=== PATIENT | female | born 1940 | race Caucasian/White ===

== ENCOUNTER 2018-01-19 08:10 | Inpatient (IN) | payer MEDICARE ==
[2018-01-12 12:00] LABS: BASOPHILS # (AUTO) 0.1 X10'3 (0-0.2); BASOPHILS % (AUTO) 0.7 % (0-1); EOSINOPHILS # (AUTO) 0.4 X10'3 (0-0.9); EOSINOPHILS % (AUTO) 5.8 % (0-6); LYMPHOCYTES # (AUTO) 1.3 X10'3 (1.1-4.8); LYMPHOCYTES % (AUTO) 18.4 % (21-51); MEAN CORPUSCULAR HEMOGLOBIN 31.9 PG (27.0-31.0); MEAN CORPUSCULAR HGB CONC 33.7 % (33.0-36.5); MEAN CORPUSCULAR VOLUME 94.7 FL (78-98); MEAN PLATELET VOLUME 6.7 FL (7.4-10.4); MONOCYTES # (AUTO) 0.7 X10'3 (0-0.9); MONOCYTES % (AUTO) 10.3 % (2-12); NEUTROPHILS # (AUTO) 4.5 X10'3 (1.8-7.7); NEUTROPHILS % (AUTO) 64.8 % (42-75); PRE OP HEMATOCRIT 42.7 % (35.0-45.0); PRE OP HEMOGLOBIN 14.4 g/dL (12.0-16.0); PRE OP PLATELET COUNT 288 X10'3 (140-440); RED BLOOD COUNT 4.52 X10'6 (4.20-5.60); RED CELL DISTRIBUTION WIDTH 12.1 % (11.5-14.5)
[2018-01-12 12:05] LABS: CLARITY,URINE CLEAR (Clear); COLOR,URINE YELLOW (Yellow); GLUCOSE, URINE NEGATIVE (Neg); KETONES,URINE NEGATIVE (Neg); LEUKOCYTE ESTERASE ,URINE NEGATIVE (Neg); NITRITES, URINE NEGATIVE (Neg); OCCULT BLOOD,URINE NEGATIVE (Neg); PROTEIN,URINE NEGATIVE (Neg)
[2018-01-12 12:15] LABS: HEMOGLOBIN A1C 6.3 % (4.5-6.2)
[2018-01-12 12:17] LABS: UA COLLECTION TYPE CLN CATCH MIDSTREAM
[2018-01-12 12:33] LABS: ALBUMIN 4.1 G/DL (3.4-5.0); ALBUMIN/GLOBULIN RATIO 1.3 (1.1-1.5); ALKALINE PHOSPHATASE 44 IU/L (46-116); BLOOD UREA NITROGEN 13 MG/DL (7-18); BUN/CREATININE RATIO 22.8 (6.6-38.0); CALCIUM 9.5 MG/DL (8.5-10.1); CHLORIDE 103 MMOL/L (99-107); CREATININE 0.57 MG/DL (0.40-0.90); PRE OP ALT 61 U/L (30-65); PRE OP ANION GAP 9 (8-16); PRE OP AST 37 U/L (10-37); PRE OP BILIRUB, TOTAL 0.5 MG/DL (0.0-1.0); PRE OP GLUCOSE 126 MG/DL (70-104); PRE OP SODIUM 140 MMOL/L (135-145); TOTAL CARBON DIOXIDE 28.4 MMOL/L (24-32); TOTAL PROTEIN 7.2 G/DL (6.4-8.2); eGFR > 90 ML/MIN
[2018-01-19] VITALS (19 sets, daily range): BP systolic 74–162; BP diastolic 29–79
[~2018-01-19] VITALS: Ht 160 cm; Wt 68.0 kg
[~2018-01-19 08:10] MED LIST: ALEN70TA48 PO; DILT120C51 PO; HYDR12.5 PO; LEVO125T8 PO; LISI10TA4 PO; MELO-100 PO; METF500T PO; PANT20TA3 PO; ROSU10TA PO; SERT50TA PO; VANCOMYCIN INJ 1000 MG in NORMAL SALINE 250ml IV.SOLN IV ONE; acetaminophen 325mg tablet PO ONE; cefazolin/dext.iso 2gm/50ml 50 ML IV ONE; celeCOXIB 100mg capsule PO ONE; famotidine 20mg tablet PO ONE; gabapentin 300mg capsule PO ONE; oxyCODONE SR 10mg (sust. release) tab PO ONE; ringers solution, lacted 1,000 ML IV SCH; tranexamic acid inj. 1,500 MG in normal saline 100ml IV soln 85 ML IV ONE
[2018-01-19] MEDS ORDERED: bacitracin inj 150,000 UNIT in sodium chloride irrig. sol 3,000 ML IR ONE (09:00)
[2018-01-19] MEDS ORDERED: tetracaine 1% (10mg/ml) pres. free inj. ONE (09:35)
[2018-01-19] MEDS ORDERED: ringers solution, lacted 1,000 ML IV SCH (09:36)
[2018-01-19] MEDS ORDERED: MIDAZolam 1mg/ml 10ml vial ONE (09:39)
[2018-01-19] MEDS ORDERED: fentaNYL/PF 50MCG/1 ML 2ML syringe ONE (09:39)
[2018-01-19] MEDS ORDERED: propofol inj 20 ML IV ONE ×2 (09:39)
[2018-01-19] MEDS ORDERED: sevoflurane 250ml liquid IH ONE (09:40)
[2018-01-19] MEDS ORDERED: fentaNYL/PF 50MCG/1 ML 2ML syringe IV PRN ×2 (09:40)
[2018-01-19] MEDS ORDERED: morphine 4 MG/ML inj SYRINge IV PRN ×2 (09:40)
[2018-01-19] MEDS ORDERED: labetalol 20mg/4ml (5mg/ml) syringe IV PRN (09:40)
[2018-01-19] MEDS ORDERED: BUPIVAcaine/dex-water/PF 7.5 mg/ml 2ml ampul ONE (09:40)
[2018-01-19] MEDS ORDERED: hydrALAZINE 20mg/ml inj. IV PRN (09:40)
[2018-01-19] MEDS ORDERED: ondansetron/PF 4mg/2ml inj IV PRN ×3 (09:40→11:40)
[2018-01-19] MEDS ORDERED: ROPIVAcaine 0.5% (5mg/ml) 30ml vial ONE (10:28)
[2018-01-19] MEDS ORDERED: diphenhydrAMINE 50 mg/ml inj IV PRN (10:35)
[2018-01-19] MEDS: potassium cl 20mEq in 1/2 NS 1,000 ML IV SCH ×2 (11:39→20:32)
[2018-01-19] MEDS ORDERED: acetaminophen 325mg tablet PO PRN (11:40)
[2018-01-19] MEDS ORDERED: diphenhydrAMINE 25mg capsule PO PRN ×2 (11:40)
[2018-01-19] MEDS ORDERED: dextrose 50%-water 50ml dispensing syringe IV PRN ×2 (11:40)
[2018-01-19] MEDS ORDERED: dextrose ORAL solution 15 GM/59 ML bottle PO PRN ×2 (11:40)
[2018-01-19] MEDS ORDERED: MESSAGE TO PHARMACY PO ONE (11:40)
[2018-01-19] MEDS ORDERED: HYDROmorphone 1 mg/ml syringe IV PRN (11:40)
[2018-01-19] MEDS ORDERED: magnesium hydroxide 30ml (MOM) UD suspension PO PRN (11:40)
[2018-01-19] MEDS ORDERED: glucagon, human recombinant 1mg kit SUBCUT PRN (11:40)
[2018-01-19] MEDS ORDERED: bisacodyl 10mg suppository rectal RC PRN (11:40)
[2018-01-19] MEDS ORDERED: insulin Lispro (HumaLOG) vial - multi-dose SQ SCH (11:40)
[2018-01-19] MEDS ORDERED: oxyCODONE/APAP 5-325mg tablet PO PRN (11:40)
[2018-01-19] MEDS: gabapentin 300mg capsule PO SCH ×2 (13:46→20:30)
[2018-01-19] MEDS: ceFAZolin 1GM/D5W- ADD-VANTAGE 50 ML IV SCH (16:13)
[2018-01-19] MEDS ORDERED: vancomycin/NS 1 GM ADD-VANTAGE 250 ML IV SCH (20:00)
[2018-01-19] MEDS: lisinopril 10 MG tablet PO SCH (20:30)
[2018-01-19] MEDS: pantoprazole 40mg Tablet.DR PO SCH (20:31)
[2018-01-19] MEDS: metFORMIN 500mg tablet PO SCH (20:31)
[2018-01-19] MEDS: sennosides 8.6mg tablet PO SCH (20:31)
[2018-01-19] MEDS: diltiazem CD 120mg capsule (once-daily) PO SCH (20:31)
[2018-01-19] MEDS: ascorbic acid 500mg tablet PO SCH (20:31)
[2018-01-19] MEDS: insulin glargine (Lantus) pen - multi-dose SQ SCH (20:49)
[2018-01-20] MEDS: ceFAZolin 1GM/D5W- ADD-VANTAGE 50 ML IV SCH (00:50)
[2018-01-20 02:00] VITALS: BP 144/68
[2018-01-20 05:00] VITALS: BP 151/65
[2018-01-20] MEDS: oxyCODONE/APAP 5-325mg tablet PO PRN ×4 (05:50→19:13)
[2018-01-20] MEDS: potassium cl 20mEq in 1/2 NS 1,000 ML IV SCH ×3 (05:50→20:47)
[2018-01-20 07:15] LABS: BASOPHILS % (AUTO) 0.3 % (0-1); EOSINOPHILS # (AUTO) 0.2 X10'3 (0-0.9); EOSINOPHILS % (AUTO) 2.9 % (0-6); HEMOGLOBIN 11.5 g/dl (12.0-16.0); LYMPHOCYTES # (AUTO) 1.1 X10'3 (1.1-4.8); LYMPHOCYTES % (AUTO) 14.3 % (21-51); MEAN CORPUSCULAR HEMOGLOBIN 31.9 PG (27.0-31.0); MEAN CORPUSCULAR HGB CONC 33.7 % (33.0-36.5); MEAN CORPUSCULAR VOLUME 94.7 FL (78-98); MEAN PLATELET VOLUME 6.4 FL (7.4-10.4); MONOCYTES # (AUTO) 0.8 X10'3 (0-0.9); MONOCYTES % (AUTO) 10.8 % (2-12); NEUTROPHILS # (AUTO) 5.4 X10'3 (1.8-7.7); NEUTROPHILS % (AUTO) 71.7 % (42-75); PLATELET COUNT 238 X10'3 (140-440); RED BLOOD COUNT 3.59 X10'6 (4.20-5.60); RED CELL DISTRIBUTION WIDTH 12.3 % (11.5-14.5); WHITE BLOOD COUNT 7.6 X10'3 (4.5-11.0)
[2018-01-20 07:28] LABS: INR 1.7 INR; PROTHROMBIN TIME 16.8 SECONDS (9.0-12.0)
[2018-01-20 07:39] LABS: ALANINE AMINOTRANSFERASE 35 U/L (12-78); ALBUMIN/GLOBULIN RATIO 1.2 (1.1-1.5); ALKALINE PHOSPHATASE 31 IU/L (46-116); ANION GAP 7 (8-16); ASPARTATE AMINO TRANSFERASE 27 U/L (10-37); BILIRUBIN,TOTAL 0.5 MG/DL (0.1-1.0); BLOOD UREA NITROGEN 6 MG/DL (7-18); BUN/CREATININE RATIO 13.3 (6.6-38.0); CALCIUM 7.9 MG/DL (8.5-10.1); CHLORIDE 98 MMOL/L (99-107); CREATININE 0.45 MG/DL (0.40-0.90); GLUCOSE 121 MG/DL (70-104); POTASSIUM 3.8 MMOL/L (3.5-5.1); SODIUM 132 MMOL/L (135-145); TOTAL CARBON DIOXIDE 26.6 MMOL/L (24-32); TOTAL PROTEIN 5.6 G/DL (6.4-8.2); eGFR > 90 ML/MIN
[2018-01-20] MEDS: levoTHYROXINE 125mcg tablet PO SCH (07:40)
[2018-01-20] MEDS: multivitamins, therapeutics tablet PO SCH (08:00)
[2018-01-20] MEDS: ascorbic acid 500mg tablet PO SCH ×2 (08:00→20:42)
[2018-01-20] MEDS: diltiazem CD 120mg capsule (once-daily) PO SCH ×2 (08:22→20:42)
[2018-01-20] MEDS: metFORMIN 500mg tablet PO SCH ×2 (08:23→20:43)
[2018-01-20] MEDS: atorvastatin 20mg tablet PO SCH (08:24)
[2018-01-20] MEDS: HYDROchlorothiazide 12.5mg capsule PO SCH (08:24)
[2018-01-20] MEDS: gabapentin 300mg capsule PO SCH ×4 (08:24→20:43)
[2018-01-20] MEDS: pantoprazole 40mg Tablet.DR PO SCH ×2 (08:25→20:43)
[2018-01-20] MEDS: sertraline 50mg tablet PO SCH (08:28)
[2018-01-20] MEDS: lisinopril 10 MG tablet PO SCH ×2 (08:28→20:43)
[2018-01-20 10:00] VITALS: BP 120/69
[2018-01-20] MEDS ORDERED: warfarin 1mg tablet PO ONE (10:00)
[2018-01-20 15:00] VITALS: BP 145/65
[2018-01-20 18:00] VITALS: BP 154/65
[2018-01-20] MEDS: sennosides 8.6mg tablet PO SCH (20:43)
[2018-01-20] MEDS: insulin glargine (Lantus) pen - multi-dose SQ SCH (21:00)
[2018-01-20 22:00] VITALS: BP 164/68
[2018-01-21] MEDS: potassium cl 20mEq in 1/2 NS 1,000 ML IV SCH (03:39)
[2018-01-21] MEDS: oxyCODONE/APAP 5-325mg tablet PO PRN ×3 (05:24→17:43)
[2018-01-21 06:02] LABS: BASOPHILS % (AUTO) 0.2 % (0-1); EOSINOPHILS # (AUTO) 0.2 X10'3 (0-0.9); EOSINOPHILS % (AUTO) 2.3 % (0-6); HEMATOCRIT 34.6 % (35.0-45.0); HEMOGLOBIN 11.9 g/dl (12.0-16.0); LYMPHOCYTES # (AUTO) 0.9 X10'3 (1.1-4.8); LYMPHOCYTES % (AUTO) 10.1 % (21-51); MEAN CORPUSCULAR HEMOGLOBIN 32.3 PG (27.0-31.0); MEAN CORPUSCULAR HGB CONC 34.3 % (33.0-36.5); MEAN CORPUSCULAR VOLUME 94.3 FL (78-98); MONOCYTES # (AUTO) 1.1 X10'3 (0-0.9); MONOCYTES % (AUTO) 11.9 % (2-12); NEUTROPHILS # (AUTO) 6.8 X10'3 (1.8-7.7); NEUTROPHILS % (AUTO) 75.5 % (42-75); PLATELET COUNT 238 X10'3 (140-440); RED BLOOD COUNT 3.67 X10'6 (4.20-5.60)
[2018-01-21 06:16] LABS: INR 1.4 INR; PROTHROMBIN TIME 14.2 SECONDS (9.0-12.0)
[2018-01-21 06:28] LABS: ALANINE AMINOTRANSFERASE 27 U/L (12-78); ALBUMIN 3.1 G/DL (3.4-5.0); ALKALINE PHOSPHATASE 36 IU/L (46-116); ANION GAP 9 (8-16); ASPARTATE AMINO TRANSFERASE 21 U/L (10-37); BILIRUBIN,TOTAL 0.7 MG/DL (0.1-1.0); BLOOD UREA NITROGEN 7 MG/DL (7-18); BUN/CREATININE RATIO 15.9 (6.6-38.0); CALCIUM 8.4 MG/DL (8.5-10.1); CHLORIDE 90 MMOL/L (99-107); CREATININE 0.44 MG/DL (0.40-0.90); GLUCOSE 147 MG/DL (70-104); POTASSIUM 3.1 MMOL/L (3.5-5.1); SODIUM 126 MMOL/L (135-145); TOTAL CARBON DIOXIDE 26.7 MMOL/L (24-32); TOTAL PROTEIN 6.1 G/DL (6.4-8.2); eGFR > 90 ML/MIN
[2018-01-21 07:00] VITALS: BP 139/61
[2018-01-21] MEDS: atorvastatin 20mg tablet PO SCH (07:44)
[2018-01-21] MEDS: gabapentin 300mg capsule PO SCH ×3 (07:44→19:33)
[2018-01-21] MEDS: pantoprazole 40mg Tablet.DR PO SCH ×2 (07:44→19:33)
[2018-01-21] MEDS: diltiazem CD 120mg capsule (once-daily) PO SCH ×2 (07:44→19:33)
[2018-01-21] MEDS: multivitamins, therapeutics tablet PO SCH (07:44)
[2018-01-21] MEDS: metFORMIN 500mg tablet PO SCH ×2 (07:44→19:33)
[2018-01-21] MEDS: lisinopril 10 MG tablet PO SCH ×2 (07:45→19:33)
[2018-01-21] MEDS: HYDROchlorothiazide 12.5mg capsule PO SCH (07:46)
[2018-01-21] MEDS: sertraline 50mg tablet PO SCH (07:46)
[2018-01-21] MEDS: levoTHYROXINE 125mcg tablet PO SCH (07:46)
[2018-01-21] MEDS: ascorbic acid 500mg tablet PO SCH ×2 (07:46→19:33)
[2018-01-21] MEDS ORDERED: warfarin 3mg tablet PO ONE (10:00)
[2018-01-21 10:46] VITALS: BP 139/61
[2018-01-21] MEDS ORDERED: acetaminophen 325mg tablet PO PRN (11:40)
[2018-01-21] MEDS ORDERED: mag hydrox/Alum hydrox/simeth 30ml oral suspension PO PRN (12:10)
[2018-01-21 18:00] VITALS: BP 146/63
[2018-01-21] MEDS: sennosides 8.6mg tablet PO SCH (19:33)
[2018-01-21] MEDS: insulin glargine (Lantus) pen - multi-dose SQ SCH (19:36)
[2018-01-21 22:07] VITALS: BP 146/68
[2018-01-22] MEDS: oxyCODONE/APAP 5-325mg tablet PO PRN ×2 (03:52→09:27)
[2018-01-22 06:00] VITALS: BP 127/61
[2018-01-22 06:53] LABS: INR 1.6 INR; PROTHROMBIN TIME 15.7 SECONDS (9.0-12.0)
[2018-01-22 06:55] LABS: ALANINE AMINOTRANSFERASE 22 U/L (12-78); ALBUMIN 2.7 G/DL (3.4-5.0); ALBUMIN/GLOBULIN RATIO 0.8 (1.1-1.5); ALKALINE PHOSPHATASE 32 IU/L (46-116); ANION GAP 6 (8-16); ASPARTATE AMINO TRANSFERASE 14 U/L (10-37); BILIRUBIN,TOTAL 0.5 MG/DL (0.1-1.0); BLOOD UREA NITROGEN 8 MG/DL (7-18); CALCIUM 8.9 MG/DL (8.5-10.1); CHLORIDE 90 MMOL/L (99-107); GLUCOSE 120 MG/DL (70-104); POTASSIUM 3.4 MMOL/L (3.5-5.1); SODIUM 126 MMOL/L (135-145); TOTAL CARBON DIOXIDE 29.8 MMOL/L (24-32); eGFR > 90 ML/MIN
[2018-01-22 07:04] LABS: BASOPHILS % (AUTO) 0.4 % (0-1); EOSINOPHILS # (AUTO) 0.2 X10'3 (0-0.9); EOSINOPHILS % (AUTO) 2.3 % (0-6); HEMATOCRIT 33.7 % (35.0-45.0); HEMOGLOBIN 11.6 g/dl (12.0-16.0); LYMPHOCYTES # (AUTO) 0.9 X10'3 (1.1-4.8); LYMPHOCYTES % (AUTO) 11.2 % (21-51); MEAN CORPUSCULAR HEMOGLOBIN 32.3 PG (27.0-31.0); MEAN CORPUSCULAR HGB CONC 34.3 % (33.0-36.5); MEAN CORPUSCULAR VOLUME 94.3 FL (78-98); MEAN PLATELET VOLUME 6.9 FL (7.4-10.4); MONOCYTES # (AUTO) 1.2 X10'3 (0-0.9); MONOCYTES % (AUTO) 14.7 % (2-12); NEUTROPHILS # (AUTO) 5.7 X10'3 (1.8-7.7); NEUTROPHILS % (AUTO) 71.4 % (42-75); PLATELET COUNT 243 X10'3 (140-440); RED BLOOD COUNT 3.57 X10'6 (4.20-5.60); RED CELL DISTRIBUTION WIDTH 12.3 % (11.5-14.5)
[2018-01-22] MEDS: diltiazem CD 120mg capsule (once-daily) PO SCH (08:10)
[2018-01-22] MEDS: metFORMIN 500mg tablet PO SCH (08:10)
[2018-01-22] MEDS: HYDROchlorothiazide 12.5mg capsule PO SCH (08:11)
[2018-01-22] MEDS: levoTHYROXINE 125mcg tablet PO SCH (08:11)
[2018-01-22] MEDS: gabapentin 300mg capsule PO SCH (08:11)
[2018-01-22] MEDS: pantoprazole 40mg Tablet.DR PO SCH (08:11)
[2018-01-22] MEDS: atorvastatin 20mg tablet PO SCH (08:11)
[2018-01-22] MEDS: multivitamins, therapeutics tablet PO SCH (08:11)
[2018-01-22] MEDS: sertraline 50mg tablet PO SCH (08:12)
[2018-01-22] MEDS: ascorbic acid 500mg tablet PO SCH (08:12)
[2018-01-22] MEDS: lisinopril 10 MG tablet PO SCH (08:12)
[2018-01-22] MEDS ORDERED: ASPI-41 PO (08:18)
[2018-01-22] MEDS ORDERED: warfarin 2.5mg tablet PO ONE (10:00)
[2018-01-22 10:03] VITALS: BP 118/52
== END 2018-01-22 11:05 | disposition home health service (06) | DRG 470 ==
LOC: PAS IN 08:10 → EDSTATUS 10:15 → ORTHO 4S 13:00
PROVIDERS: ADMIT Specialist; ATTEND Specialist
PROC: 0SRB02Z Replacement of Left Hip Joint with Metal on Polyethylene Synthetic Substitute, Open Approach (ICD-10-PCS; principal; 2018-01-19 09:45)
DX: M16.12 Unilateral primary osteoarthritis, left hip (principal); D62 Acute posthemorrhagic anemia; I10 Essential (primary) hypertension; E11.9 Type 2 diabetes mellitus without complications; F32.9 Major depressive disorder, single episode, unspecified; E03.9 Hypothyroidism, unspecified; K21.9 Gastro-esophageal reflux disease without esophagitis; Z96.641 Presence of right artificial hip joint; Z90.10 Acquired absence of unspecified breast and nipple; Z72.89 Other problems related to lifestyle; Z79.899 Other long term (current) drug therapy; Z79.84 Long term (current) use of oral hypoglycemic drugs; Z85.3 Personal history of malignant neoplasm of breast; Z87.891 Personal history of nicotine dependence
CPT/HCPCS: 36415; 73502; 80053; 81003; 82948; 83036; 84443; 85025; 85610; 85730; 86885; 86900; 86901; 87070; 97110; 97116; 97162; 97530; A6253; A6449; A6455; A7000; C1758; C1776; G0378; J0690; J1815; J2250; J2405; J2704; J2795; J3010; J3370; J3490; J7030; J7120

== ENCOUNTER 2020-10-11 13:17 | Outpatient (CLI) | payer MEDICARE, OTHER ==
[~2020-10-11 13:17] MED LIST changes: -ALEN70TA48 PO; +ALEN70TA60 PO; +LISI10TA27 PO; -LISI10TA4 PO; +PANT20TA18 PO; -PANT20TA3 PO; -ROSU10TA PO; +ROSU10TA2 PO; -VANCOMYCIN INJ 1000 MG in NORMAL SALINE 250ml IV.SOLN IV ONE; -acetaminophen 325mg tablet PO ONE; -cefazolin/dext.iso 2gm/50ml 50 ML IV ONE; -celeCOXIB 100mg capsule PO ONE; -famotidine 20mg tablet PO ONE; -gabapentin 300mg capsule PO ONE; -oxyCODONE SR 10mg (sust. release) tab PO ONE; -ringers solution, lacted 1,000 ML IV SCH; -tranexamic acid inj. 1,500 MG in normal saline 100ml IV soln 85 ML IV ONE
== END 2020-10-11 23:59 | disposition home or self-care (01) ==
LOC: RAD 13:17
PROVIDERS: ATTEND Physician Assistant Surgical
DX: K21.9 Gastro-esophageal reflux disease without esophagitis (principal); R13.14 Dysphagia, pharyngoesophageal phase
CPT/HCPCS: 74230